=== PATIENT | female | born 1975 | race Caucasian/White ===

== ENCOUNTER 2017-11-09 02:42 | Emergency (ER) | payer SELFPAY ==
[2017-11-09] MEDS: KETOROLAC 60 MG/2 ML INJ. IM (03:47)
[2017-11-09] MEDS ORDERED: LIDOCAINE/EPI/TETRACAINE TOPICAL GEL 3 ML. TP (04:19)
[2017-11-09] MEDS: LIDOCAINE/EPI/TETRACAINE TOPICAL GEL 3 ML. TP (04:30)
[2017-11-09] MEDS: LIDOCAINE 1%/EPI 1:100,000 20 ML VIAL. INJ (04:45)
[2017-11-09] MEDS: NEOMY/BACITR/POLYMYXIN OINT PACKET. TP (05:00)
== END 2017-11-09 05:06 | disposition home or self-care (01) ==
LOC: ER 02:42
DX: S01.01XA Laceration without foreign body of scalp, initial encounter (principal); S00.83XA Contusion of other part of head, initial encounter; E11.9 Type 2 diabetes mellitus without complications; F10.10 Alcohol abuse, uncomplicated; Z90.49 Acquired absence of other specified parts of digestive tract; V87.8XXA Person injured in other specified noncollision transport accidents involving motor vehicle (traffic), initial encounter; Y93.89 Activity, other specified; Y92.89 Other specified places as the place of occurrence of the external cause; Y99.8 Other external cause status
CPT/HCPCS: 70450; 72125; 96372; 99284; J1885; J3490